=== PATIENT | male | born 1945 | race Caucasian/White ===

== ENCOUNTER → 2017-02-28 | Outpatient (CLI) | payer BLACK LUNG, MEDICARE, OTHER | LOC: RT 16:17 | DX: J44.9 Chronic obstructive pulmonary disease, unspecified (principal); J60 Coalworker's pneumoconiosis; R91.8 Other nonspecific abnormal finding of lung field | CPT/HCPCS: 36600; 71020; 82803 ==

== ENCOUNTER → 2017-02-28 | Outpatient (CLI) | payer BLACK LUNG, MEDICARE, OTHER | LOC: HEART 5 14:43 | DX: J60 Coalworker's pneumoconiosis (principal); J44.9 Chronic obstructive pulmonary disease, unspecified | CPT/HCPCS: 94060; 94729 ==